=== PATIENT | male | born 1935 | race Caucasian/White ===

== ENCOUNTER 2022-07-26 08:15 | Observation (INO) ==
--- NOTE | 2022-06-14 14:10 | PAT Medication Instructions ---
Medication Instructions Date of Service June 14, 2022 Home Medications acetaminophen 500 mg tablet (Tylenol Extra Strength) 1,000 mg PO Q6H PRN Pain allopurinol 300 mg tablet 300 mg PO QAM fluocinonide 0.05 % topical cream 1 applic topical UD hydrochlorothiazide 25 mg tablet 12.5 mg PO QAM multivitamin (Multiple Vitamins tablet) 1 tab PO PM amoxicillin 500 mg tablet 2,000 mg PO UD PRN BEFORE DENTAL CARE atorvastatin 40 mg tablet 40 mg PO WK carboxymethylcellulose sodium 1 % eye liquid gel drops 1 drp ophthalmic (eye) BID dicyclomine 10 mg capsule 10 mg PO UD PRN ABDOMINAL CRAMPING famotidine 20 mg tablet 20 mg PO QAM lactase 3,000 unit tablet 3,000 unit PO AC PRN DAIRY PRODUCTS simethicone 40 mg chewable tablet 40 mg PO DAILY PRN Acid Reflux vitamin A-vitamin C-vit E-min tablet 1 tab PO BID Continue as directed amoxicillin 500 mg tablet 2,000 mg PO UD PRN BEFORE DENTAL CARE (if needed) STOP taking 2 weeks before surgery (or as soon as possible if surgery is within 2 weeks) vitamin A-vitamin C-vit E-min tablet 1 tab PO BID STOP taking 24 hours before surgery fluocinonide 0.05 % topical cream 1 applic topical UD DO NOT take the morning of surgery hydrochlorothiazide 25 mg tablet 12.5 mg PO QAM dicyclomine 10 mg capsule 10 mg PO UD PRN ABDOMINAL CRAMPING lactase 3,000 unit tablet 3,000 unit PO AC PRN DAIRY PRODUCTS simethicone 40 mg chewable tablet 40 mg PO DAILY PRN Acid Reflux Take morning of surgery With a small sip of water, OTHERWISE NOTHING TO EAT OR DRINK AFTER MIDNIGHT: acetaminophen 500 mg tablet (Tylenol Extra Strength) 1,000 mg PO Q6H PRN Pain (if needed) allopurinol 300 mg tablet 300 mg PO QAM carboxymethylcellulose sodium 1 % eye liquid gel drops 1 drp ophthalmic (eye) BID famotidine 20 mg tablet 20 mg PO QAM Take evening before surgery acetaminophen 500 mg tablet (Tylenol Extra Strength) 1,000 mg PO Q6H PRN Pain (if needed) multivitamin (Multiple Vitamins tablet) 1 tab PO PM carboxymethylcellulose sodium 1 % eye liquid gel drops 1 drp ophthalmic (eye) BID dicyclomine 10 mg capsule 10 mg PO UD PRN ABDOMINAL CRAMPING (if needed) lactase 3,000 unit tablet 3,000 unit PO AC PRN DAIRY PRODUCTS (if needed) simethicone 40 mg chewable tablet 40 mg PO DAILY PRN Acid Reflux (if needed) Other Notes If you have any questions please call us at [phone] or [phone] or [phone] or [phone]
--- NOTE | 2022-06-20 10:31 | Anesthesiology Consultation ---
Date of Service June 20, 2022 Assessment & Plan (1) Encounter for pre-operative examination: - COVID screening: Per assessment on 06/20: No known COVID-19 positive contacts or current COVID-19 related symptoms. Travel screen- [place] (via car). Patient vaccinated At surgeon discretion if preop Covid testing being done. - Check [facility] AM DOS - Outpatient joint assessment: Pt currently scheduled for inpatient pathway. If surgeon requests review for outpatient joint pathway, patient is not recommended candidate for outpatient joint program from anesthesia standpoint. - S/P Left DEANNA (08/18/15): SAB at L3/4 (x2 attempts) at [facility]. - Pt goes by "Win" Chart Review Chart Review: Acceptable Risk for Surgery and Patient seen in Pre Admission Testing Teaching & Discussion Pre-Anesthesia Teaching/Discussion Notes: Instructed NPO after midnight before surgery,except medications with 15 cc of water. Medication instructions provided according to the PAT guidelines. History Surgery Operation Date: 07/26/22 08:50 Proposed Procedures p Right Total Hip Arthroplasty - Jamil Almonte MD Height/Weight Height: 5 ft 11 in Weight: 80.2 kg Allergies Allergy/AdvReac Type Severity Reaction Status Date / Time NSAIDS (Non-Steroidal AdvReac Intermediate Advised to Verified 06/14/22 15:00 Anti-Inflamma avoid d/t kidney function aspirin AdvReac Mild Nosebleeds, Unverified 06/14/22 15:00 kidney dysfunction simvastatin AdvReac Mild Muscle Verified 06/14/22 15:00 aches Medications Home Medications Medication Instructions Recorded Confirmed Last Taken acetaminophen 500 mg tablet 1,000 mg PO Q6H PRN Pain 03/22/18 06/13/22 03/21/18 (Tylenol Extra Strength) allopurinol 300 mg tablet 300 mg PO QAM 03/22/18 06/13/22 03/22/18 fluocinonide 0.05 % topical cream 1 applic topical UD 03/22/18 06/13/22 Unknown hydrochlorothiazide 25 mg tablet 12.5 mg PO QAM 03/22/18 06/13/22 03/22/18 multivitamin (Multiple Vitamins 1 tab PO PM 03/22/18 06/13/22 03/21/18 tablet) amoxicillin 500 mg tablet 2,000 mg PO UD PRN BEFORE DENTAL 06/13/22 06/13/22 Unknown CARE atorvastatin 40 mg tablet 40 mg PO WK 12/05/22 12/05/22 Unknown carboxymethylcellulose sodium 1 % 1 drp ophthalmic (eye) BID 06/13/22 06/13/22 Unknown eye liquid gel drops dicyclomine 10 mg capsule 10 mg PO UD PRN ABDOMINAL CRAMPING 06/13/22 06/13/22 Unknown famotidine 20 mg tablet 20 mg PO QAM 06/13/22 06/13/22 Unknown lactase 3,000 unit tablet 3,000 unit PO AC PRN DAIRY PRODUCTS 06/13/22 06/13/22 Unknown simethicone 40 mg chewable tablet 40 mg PO DAILY PRN Acid Reflux 06/13/22 06/13/22 Unknown vitamin A-vitamin C-vit E-min 1 tab PO BID 06/13/22 06/13/22 Unknown tablet Past Medical History Medical History Arthritis of right hip CKD (chronic kidney disease) Stage 3 Diabetes mellitus, type 2 Diet controlled GERD (gastroesophageal reflux disease) History of COVID-19 11/2021 > symptoms resolved History of skin cancer Chest region Hx of gout Hyperlipidemia Hypertension Exercise / Class Metabolic Activity II 4-5 Yardwork/Stairs/Walk up hill (one FS (no CP, no SOB)) Past Family History Family History Other No family history of adverse response to anesthesia No pertinent family history Past Surgical History Surgical History H/O oral surgery GUM SURGERY History of carpal tunnel release RT/LEFT History of colonoscopy History of left hip replacement History of tooth extraction S/P trigger finger release Past Anesthesia History No Hx of Anesthesia Complications and No Family Hx of Anesthesia Complications History of PONV No Hx of PONV and No Hx of Motion Sickness Social History Smoking Status: Never smoker Do You Dip or Chew Tobacco: No Hx Alcohol Use: Yes Alcohol type: wine alcohol intake frequency: a few times a week substance use type: does not use Review of Systems Patient denies chest pain, shortness of breath, dyspnea on exertion, fever, chills, cough, wheezing, palpitations. Physical Exam Vital Signs VITALS BP 157/81 P 61 TEMP WNL SP02 98%RA RESP 18 PHYSICAL Full cervical extension range of motion. Full TMJ range of motion. TMD 4 finger breaths Mallampati Score 1 Dentition: intact, + several crowns (sides/molars + upper front), + implant (side) Lungs: clear throughout to auscultation Cardiac: regular rate and rhythm, no murmurs noted Spine: normal Carotid arteries: negative bruit Extremities: no edema Lab Results Anesthesia Preop Results Results Anesthesia Widget: WBC 6.97 K/ul (4.8-10.8) 06/20/22 Hgb 14.4 g/dl (14.0-18.0) 06/20/22 Hct 42.3 % (40.1-51.0) 06/20/22 Plt 210 K/uL (130-400) 06/20/22 Na 138 mmol/L (136-145) 06/20/22 K 4.0 mmol/L (3.5-5.1) 06/20/22 Cl 102 mmol/L (98-107) 06/20/22 CO2 30 mmol/L (21-32) 06/20/22 BUN 23 mg/dl (6-23) 06/20/22 Creat 1.51 mg/dl (0.6-1.4) H 06/20/22 Glucose Level 116 mg/dl (70-99(Fasting)) H 06/20/22 PT 10.8 Seconds (9.0-12.0) 06/20/22 PTT 27.9 Seconds (21.0-31.0) 06/20/22 INR 1.0 (0.9-1.1) 06/20/22 HA1c 6.5 % (4.5-5.6) H 06/20/22 Blood Type O Positive 06/20/22 Antibody Screen NEGATIVE 06/20/22 Testing Electrocardiogram Date: 06/20/22 SB at 56bpm. Otherwise normal ECG. Chest X-Ray Date: 06/20/22 FINDINGS: Cardiomediastinal and hilar silhouettes are within normal limits. There is no pneumothorax, pleural effusion, airspace consolidation or overt pulmonary edema. Degenerative changes of the shoulders and spine. Mid thoracic dextroscoliosis. IMPRESSION: No acute process. Echocardiogram Date: 06/22/21 LVEF 55-59%. No regional motion abnormality. Mildly increased concentric LV wall thickness. Grade 1 diastolic dysfunction. Mild TR. COVID-19 Risk Screen Screening Information COVID-19 Screen Date: 06/20/22 Exposure 21 Days Family/Household +COVID Last 21 Days: No Exposure 10 Days Any COVID Exposure Last 10 Days: No Symptoms Last 10 Days Experienced COVID Sx Last 10 Days: No + COVID 0-90 Days COVID + in Last 0-90 Days: No
--- NOTE | 2022-07-23 19:19 | History and Physical Report ---
DATE OF ADMISSION: 07/26/2022 CHIEF COMPLAINT: Right hip pain. HISTORY OF PRESENT ILLNESS: The patient is an 87-year-old gentleman well known to me from a previous left hip replacement done in 2016. He has done well from the left side. Over the past several year s, he has developed increased pain and discomfort in his right hip. He has got lateral hip pain, roland in pain, thigh pain radiating down to his knee. He limps more as the day goes on. It has gotten sti ff as well. He has difficulty putting his shoes and socks on. He has had injections, which provided some temporary relief, but become less successful over time. It is really started to hinder his lif estyle and he would like to get his hip fixed. PAST MEDICAL HISTORY: Significant for, 1. Hypertension. 2. Diabetes with an A1c of 6.5. 3. Gastroesophageal reflux disease. 4. Hiatal hernia. 5. Chronic kidney disease. PAST SURGICAL HISTORY: Includes, 1. Left hip replacement done on 08/18/2015. 2. Carpal tunnel release. 3. Trigger finger release. ALLERGIES: ASPIRIN, WHICH CAUSES BLEEDING OF HIS NOSE. CURRENT MEDICATIONS: Include, 1. Tylenol. 2. Allopurinol. 3. Tums. 4. Cyclobenzaprine. 5. Fluocinonide. 6. Hydrochlorothiazide. 7. Ibuprofen. 8. Vitamin C. 9. Ranitidine. 10. Multivitamin. SOCIAL HISTORY: Significant for an 87-year-old male. He lives in [place]. Four drinks per week. Does not smoke. FAMILY HISTORY: Noncontributory. REVIEW OF SYSTEMS: Significant for well-controlled diabetes. No chest pain or shortness of breath. No history of DVT or PE. No known bleeding problems. He does have some chronic renal disease with chronically elevated creatinine. PHYSICAL EXAMINATION: GENERAL: Shows a pleasant, healthy-appearing male. Looks younger than his stated age. HEENT: Benign. NECK: Supple. No lymphadenopathy. LUNGS: Clear to auscultation. HEART: Regular rate and rhythm. ABDOMEN: Soft, nontender, nondistended. EXTREMITIES: Grossly neurovascularly intact except as follows: Examination of the right hip reveale d patient walks with a slightly antalgic gait. Leg lengths clinically appear pretty equal. He has v toyin limited hip motion with internal rotation to neutral at best. It recreates his pain. Negative s traight leg raise. No knee effusion. X-RAYS: X-rays of the right hip reveal advanced right hip DJD. He has got complete loss of his join t space. He has got a fairly concentric central disease as well. Osteophytes in the femoral head an d acetabulum. The left hip replacement looks to be in good position. ASSESSMENT: An 87-year-old active gentleman with multiple medical comorbidities including chronic re nal disease, diabetes, hypertension, hiatal hernia, status post left hip replacement with advanced ri ght hip arthritis. He would like to have his right hip fixed. PLAN: We are going to proceed with right hip replacement. The risks and benefits of this procedure were explained to the patient and include but not limited to DVT, PE, , infection, neurological injury, vascular injury, bleeding problem, pain, limited range of motion, stiffness, failure to relie ve his symptoms, incomplete relief of symptoms, etc. The patient understands and desires to proceed. Informed consent was obtained. We will have to stay away from NSAIDs due to his elevated creatinine. We will use Xarelto for DVT pr ophylaxis. He is planning to be discharged to home and using [facility] program. Job ID: [id number]
[~2022-07-26 08:15] MED LIST: ACETAMINOPHEN 500 MG TAB PO SCH; BUPIVACAINE 0.5 % 5 MG/1 ML PF 10ML VIAL ONE; FAMOTIDINE 20 MG TAB PO SCH; LR 500ML BOLUS, THEN 15ML/HR IV SCH; LR 60ML/HR IV SCH; METOCLOPRAMIDE HCL 10 MG TABLET PO SCH; ceFAZolin 2000MG 2,000 MG/15 ML SYR IV SCH
[2022-07-26] MEDS: CeleBREX 200 MG CAP PO SCH ×2 (09:14→09:16)
--- NOTE | 2022-07-26 09:18 | History & Physical Bridge Note ---
Date of Service July 26, 2022 History & Physical Bridge Note I have examined the patient, reviewed the History & Physical and in the interval since the performance of the History & Physical I have noted the following changes of clinical significance: no changes noted
[2022-07-26] MEDS ORDERED: TRANEXAMIC ACID / 0.7% NACL 1,000 MG/100 ML BAG IV ONE (09:22)
[2022-07-26] MEDS ORDERED: MIDAZOLAM HCL 1 MG/ML 2ML VIAL ONE (10:20)
[2022-07-26] MEDS ORDERED: fentaNYL citrate 100 MCG/2 ML VIAL IV PRN (10:27)
[2022-07-26] MEDS ORDERED: PHENYLEPHRINE 100MCG/ML 5ML SYR IV PRN (10:27)
[2022-07-26] MEDS ORDERED: ATROPINE SULFATE 0.1 MG/ML 10ML SYR IV PRN (10:27)
[2022-07-26] MEDS ORDERED: LABETALOL HCL IV 5 MG/ML 20ML IV PRN (10:27)
[2022-07-26] MEDS ORDERED: MEPERIDINE HCL 25 MG/ML CARP/VIAL IV PRN (10:27)
[2022-07-26] MEDS ORDERED: HYDROmorphone INJ 1 MG/ML SYRINGE IV PRN (10:27)
[2022-07-26] MEDS ORDERED: ONDANSETRON INJ 2 MG/ML 2 ML VIAL IV PRN ×2 (10:27→16:50)
[2022-07-26] MEDS ORDERED: ePHEDrine sulfate 50 MG/ML AMP IV PRN (10:27)
[2022-07-26] MEDS ORDERED: LIDOCAINE 2% MPF LOCAL 5 ML VIAL INFIL ONE (10:32)
[2022-07-26] MEDS ORDERED: PROPOFOL IV EMULSION 10 MG/ML 20 ML VIAL IV ONE (10:32)
[2022-07-26] MEDS ORDERED: BUPIVACAINE/EPINEPHRINE 0.5% MPF 1:200,000 30 ML VIAL ONE (11:48)
[2022-07-26] MEDS ORDERED: PHENYLEPHRINE HCL 10 MG/ML VIAL ONE (12:20)
[2022-07-26] MEDS ORDERED: ePHEDrine sulfate 50 MG/ML AMP ONE (12:20)
[2022-07-26] MEDS ORDERED: VASOPRESSIN 20 UNIT/ML VIAL ONE (12:20)
--- NOTE | 2022-07-26 13:29 | Operative Report ---
PG Post Operative Report Pre & Post Diagnosis Operation Date: 07/26/22 10:40 Pre-Op Diagnosis: Degenerative Joint Disease Right Hip Post-Op Diagnosis: Degenerative Joint Disease Right Hip I identified the patient and participated in the time-out.: Yes Procedure Operation Date: 07/26/22 10:40 Actual Procedures p Right Total Hip Arthroplasty(Right) - Jamil Almonte MD Surgeon Jamil Almonte MD Bakery Worker Buster Joyce PA-C Estimated Blood Loss 200 Findings Consistent with Post-Op Diagnosis Operative findings revealed a moderate-sized joint effusion. She had grade 4 [id number] disease of the femoral head and acetabulum. Small anterior acetabular osteophyte. Fluids 1300 cc Specimens Right femoral head sent to pathology Anesthesia Type Spinal MAC Complications none Disposition Accompanied Patient To Recovery: No Indications Patient is an 87-year-old gentleman long-term patient of mine who presents now for surgical treatment of his hip. He is got a long history of hip problems and was left hip replaced in the past. Over the past several years he developed increased pain discomfort in his right hip. He failed conservative measures. X-rays show revealed advanced hip arthritis. He elected with total hip arthroplasty. Description of Procedure Operative implants consist of: 1. Biomet G7 size 54 mm acetabular shell. 2. 6.5 cancellous acetabular screws 1 of 35 mm length 1 to 25 mm length. 3. [place] hole senior production planner. 4. highly cross-linked polyethylene liner with a 54 mm outer diameter and 36 mm inner diameter. 5. DePuy Karaya size 12 short neck 125 degree angle femoral stem. 6. +5/36 mm ceramic articular ball. The patient was taken the operating, identified, placed on the operating table supine position protectors were properly padded. IV antibiotics tried by anesthesia team. A spinal anesthetic been implemented holding area. Meneses catheter was placed in sterile fashion. The patient then placed in the left lateral cubitus position. An axillary roll was placed. Stulberg hip positioner was used for positioning. Right hip and leg were then prepped and draped in usual sterile fashion. A posterior lateral puncture of the right hip was then performed through a curvilinear incision centered over the greater trochanter. Sharp dissection Through subcutaneous tissue down below the IT band gluteal fascia. IT band gluteal fascia incised longitudinally in line with the skin incision. The underlying greater bursa was excised. The piriformis and external rotators along with the posterior hip joint capsule were then released from the posterior aspect hip as a single layer. Great care was taken throughout the procedure protect the sciatic nerve at all times. Hip was internally rotated and dislocated. Femoral neck osteotomy cut was made with Final Cut 11 mm above the lesser trochanter. Femoral head was removed and sent for pathology. The femur was retracted anteriorly. Attention drawn the acetabulum. The acetabular labrum was excised. The pulmonary fat was excised. Sequential reaming reaming of the acetabular was then performed begin with size 45 and progressing up to 53. The I did ream some with a 54 reamer. A 54 mm Biomet G7 acetabular shell was then placed in about 40 degrees lateral opening and 20 degrees of anteversion. Was fixed with two 6.5 cancellous acetabular screws. Some small anterior osteophytes were removed. Trial liner was placed. Attention drawn the femur. The proximal femur was entered with a Yandex cutter followed by canal finder. I then broached beginning size 8 and progressing up to a 12 we got excellent fit with a 12. We trialed this with a standard KLA neck but it just seemed too tight but too much offset. We elect to use the short neck. With a short neck and the +5 articular ball the hip was fully stable in full extension and external rotation and flexion to 9 degrees internal Tatian over [address] I elect to place these implants. All trial implants were removed. An apex hole senior production planner was placed but highly cross-linked polyethylene liner was placed. A DePuy size 12 femoral stem with short neck and 125 degree angle was then impacted in position. +5/36 mm ceramic articular ball was placed. Hip was located once again found to be stable. Attention drawn toward closing. Wounds irrigated scopes also pulsatile lavage solution. I did inject locally with 60 cc of half percent Marcaine with epinephrine. The posterior capsule and external rotators were then repaired through drill holes in the posterior trochanter as a single layer with #2 Tycron suture. IT band gluteal fascia then closed in 1 PDS suture running fashion for subcutaneous tissue then closed with 2 layers the deep layer #1 Vicryl suture and subcutaneous tissue with 2 Dexon suture in a buried interrupted fashion. Skin was closed with skin adithya. Leg was then cleaned and dried a sterile dressing was Xeroform, 4 x 4's, sterile ABD pad, foam tape was applied. The patient then transferred to the recovery room in stable condition. Patient tolerated procedure well and there were no complications. Buster Joyce, my physician ice cream freezer assistant, was present for the entire procedure. His assistance was essential and required for appropriate patient positioning, prepping and draping, surgical exposure, performing the technical details of the operation, placement the implants, closure of the wound, and placement of the sterile bandage. I attest to the content of the Intraoperative Record and any orders documented therein. Any exceptions are noted below.
--- NOTE | 2022-07-26 14:17 | Anesthesiology Progress Note ---
Date of Service July 26, 2022 Anesthesia Post Procedure Vital Signs Vital Signs: Temp Pulse Resp BP Pulse Ox O2 Del Method O2 Flow Rate 07/26/22 13:50 70 16 105/54 L 97 Oxymask 1 07/26/22 13:40 70 17 98/65 L 100 Oxymask 3 07/26/22 14:10 36.5 C 70 16 92/53 L 96 Room Air 07/26/22 14:00 73 17 92/53 L 98 Room Air 07/26/22 13:30 73 17 91/49 L 100 Oxymask 5 07/26/22 13:21 36.6 C 83 12 107/57 L 98 Oxymask 07/26/22 09:01 36.8 C 80 18 164/98 H 97 Room Air Transfer of Care Handoff Completed per policy Notes Mental Status: alert / awake / arousable and participated in evaluation Patient Amnestic to Procedure: Yes Nausea / Vomiting: adequately controlled Pain: adequately controlled Airway Patency, RR, SpO2: stable & adequate BP & HR: stable & adequate Hydration State: stable & adequate Anesthetic Complications: no major complications apparent and Pt Satisfied with anesthetic care
[2022-07-26] MEDS ORDERED: METOCLOPRAMIDE HCL INJ 5 MG/ML 2 ML VIAL IV PRN (16:50)
[2022-07-26] MEDS ORDERED: NO NSAIDS SCH (16:50)
[2022-07-26] MEDS ORDERED: TAMSULOSIN HCL 0.4 MG CAP PO PRN (16:50)
[2022-07-26] MEDS ORDERED: ALUMINUM/MAGNESIUM SUSP 30 ML UDC PO PRN (16:50)
[2022-07-26] MEDS ORDERED: DICYCLOMINE HCL 10 MG CAP PO PRN (16:50)
[2022-07-26] MEDS ORDERED: LACTASE 3000 UNIT TAB PO PRN (16:50)
[2022-07-26] MEDS ORDERED: bisacodyL 10 MG SUPP PR PRN (16:50)
[2022-07-26] MEDS ORDERED: NALOXONE HCL 0.4 MG/1 ML VIAL/CARP IV PRN (16:50)
[2022-07-26] MEDS ORDERED: HYDROmorphone INJ 0.5 MG/0.5 ML SYR IV PRN (16:50)
[2022-07-26] MEDS ORDERED: MAGNESIUM HYDROXIDE SUSP 30 ML UDC PO PRN (16:50)
[2022-07-26] MEDS: SODIUM CHLORIDE 0.9% 1000ML 1,000 ML IV SCH (17:06)
[2022-07-26] MEDS: ACETAMINOPHEN 500 MG TAB PO SCH (18:08)
[2022-07-26] MEDS: ASCORBIC ACID 500 MG TAB PO SCH (18:29)
[2022-07-26] MEDS: ceFAZolin 2000MG 2,000 MG/15 ML SYR IV SCH (18:29)
[2022-07-26] MEDS ORDERED: TRANEXAMIC ACID / 0.7% NACL 1,000 MG/100 ML BAG IV SCH (19:30)
[2022-07-26] MEDS: DOCUSATE SODIUM 100 MG CAP PO SCH (19:46)
[2022-07-26] MEDS: traMADol HCL 50 MG TABLET PO PRN ×2 (19:46→23:59)
--- NOTE | 2022-07-26 20:49 | XRay Report ---
AP PELVIS, CROSSTABLE LATERAL RIGHT HIP History: Right total hip arthroplasty. Degenerative arthritis. Postop. FINDINGS: The patient is status post a right total hip arthroplasty. The hardware is intact. No fract ure or dislocation. Skin adithya are in place. Evidence for a prior left total hip arthroplasty. IMPRESSION: Right total hip arthroplasty. No evidence for hardware complication ACT 112: Negative or not required by law. Electronically signed by: Dominik Estrada M.D. 07/26/2022 8:47 PM
[2022-07-26] MEDS ORDERED: SENNA 8.6 MG TAB PO SCH (21:00)
[2022-07-26] MEDS ORDERED: NON-FORMULARY MEDICATION (Multivitamin [Multiple Vitamins] Tablet) PO SCH (21:00)
[2022-07-27] MEDS: ACETAMINOPHEN 500 MG TAB PO SCH ×3 (01:42→16:37)
[2022-07-27] MEDS: ARTIFICIAL TEARS OP SCH ×2 (02:37→08:22)
[2022-07-27] MEDS: SODIUM CHLORIDE 0.9% 1000ML 1,000 ML IV SCH (03:20)
[2022-07-27] MEDS: ceFAZolin 2000MG 2,000 MG/15 ML SYR IV SCH (03:55)
[2022-07-27] MEDS: traMADol HCL 50 MG TABLET PO PRN ×2 (05:29→12:53)
[2022-07-27 06:58] LABS: Basophils # (auto) 0.01 K/uL (0-0.2); Basophils % (auto) 0.1 %; Eosinophils # (auto) 0.05 K/uL (0-0.50); Eosinophils % (auto) 0.5 %; Hematocrit (blood only) 34.3 % (40.1-51.0); Hemoglobin 12.1 g/dl (14.0-18.0); Immature Granulocytes # (auto) 0.03 K/uL (0.00-0.02); Immature Granulocytes % (auto) 0.3 %; Lymphocytes # (auto) 1.14 K/uL (1.2-3.4); Lymphocytes % (auto) 10.4 %; Mean Corpuscular Hemoglobin 31.9 pg (25.0-34.0); Mean Corpuscular Hgb Conc 35.3 g/dL (32.0-36.0); Mean Corpuscular Volume 90.5 fL (80.0-100.0); Monocytes # (auto) 1.12 K/uL (0.24-0.82); Monocytes % (auto) 10.2 %; Neutrophils # (auto) 8.65 K/uL (1.4-6.5); Neutrophils % (auto) 78.5 %; Platelet Count 162 K/uL (130-400); Red Blood Count 3.79 M/uL (4.63-6.08)
[2022-07-27 07:39] LABS: Calcium 8.6 mg/dl (8.5-10.1); Potassium 4.2 mmol/L (3.5-5.1)
[2022-07-27 07:44] LABS: BUN Creatinine Ratio 16.4 (10-20); Creatinine Clr Calc Pharmacy 42.9 ml/min; Est GFR (African American) 55.6 ml/min
[2022-07-27] MEDS ORDERED: allopurinoL 300 MG TAB PO SCH (09:00)
[2022-07-27] MEDS ORDERED: hydroCHLOROthiazide 25 MG TAB PO SCH (09:00)
[2022-07-27] MEDS ORDERED: FAMOTIDINE 20 MG TAB PO SCH (09:00)
[2022-07-27] MEDS ORDERED: MULTIVITAMIN TAB PO SCH (09:00)
[2022-07-27] MEDS: DOCUSATE SODIUM 100 MG CAP PO SCH (09:02)
[2022-07-27] MEDS: ASCORBIC ACID 500 MG TAB PO SCH ×2 (09:02→16:16)
[2022-07-27] MEDS ORDERED: RIVAROXABAN 10 MG TABLET PO SCH (14:00)
--- NOTE | 2022-07-27 15:34 | Progress Notes ---
DATE OF SERVICE: 07/27/2022. SUBJECTIVE: An 87-year-old gentleman now postoperative day 1 from a right hip replacement. He is do ing pretty well. His pain is controlled. No chest pain or shortness of breath. Therapy went well. He is hoping to go home. OBJECTIVE: VITAL SIGNS: Temperature 36.9. Vital signs are stable. GENERAL: Shows a pleasant, elderly male. He is sitting up in bed and looks comfortable. He is talk ing to his . He is awake, alert and oriented. LUNGS: Clear to auscultation. HEART: Regular rate and rhythm. ABDOMEN: Soft, nontender, nondistended. EXTREMITIES: Grossly neurovascularly intact except as follows. Examination of the right hip reveals the dressing to be clean, dry and intact. Leg lengths are equal . Thigh is soft and supple. He is neurologically intact. LABORATORY DATA: Hemoglobin 12.1. Hematocrit 34.3. Electrolytes are stable. Creatinine is actuall y improved at 1.34. ASSESSMENT: An 87-year-old gentleman, postoperative day 1 from a right hip replacement, doing well. Therapy went well. His pain is controlled. He is neurologically intact. PLAN: 1. DVT prophylaxis includes thigh-high TEDs, SCDs, and Xarelto. 2. PT/OT, weightbear as tolerated. Right total hip protocol. 3. Pain control, doing okay with current pain regimen. 4. Disposition: Plan to discharge to home with some home health likely later today. Job ID: [id number]
[2022-07-30] MEDS ORDERED: ATORVASTATIN 40 MG TAB PO SCH (09:00)
== END 2022-07-27 17:15 | disposition home health service (06) ==
LOC: ASU 08:15 → PACUINP 08:15 → 3E 16:52